=== PATIENT | female | born 1985 | race Caucasian/White ===

== ENCOUNTER 2018-04-12 18:47 | Emergency (ER) | payer SELFPAY ==
[~2018-04-12] VITALS: Ht 154.9 cm; Wt 101.6 kg
[2018-04-12 19:01] VITALS: Ht 154.9 cm; Wt 101.6 kg
[2018-04-12 21:31] VITALS: BP 164/87
== END 2018-04-12 21:31 | disposition home or self-care (01) ==
LOC: ED 18:47
DX: H81.10 Benign paroxysmal vertigo, unspecified ear (principal); F41.9 Anxiety disorder, unspecified
CPT/HCPCS: 82962; J8597; Q0162